=== PATIENT | female | born 1970 | race Caucasian/White ===

== ENCOUNTER → 2017-03-17 | Outpatient (CLI) | payer OTHER | LOC: CIMAGING 12:44 | PROVIDERS: ATTEND Obstetrics & Gynecology | DX: R79.9 Abnormal finding of blood chemistry, unspecified (principal) | CPT/HCPCS: 76856-PO ==

== ENCOUNTER → 2018-10-11 | Outpatient (CLI) | payer OTHER | LOC: FIMAGING 11:08 | PROVIDERS: ATTEND Obstetrics & Gynecology | DX: Z31.89 Encounter for other procreative management (principal); N96 Recurrent pregnancy loss; F41.9 Anxiety disorder, unspecified; F32.9 Major depressive disorder, single episode, unspecified ==